=== PATIENT | female | born 1995 | race Caucasian/White ===

== ENCOUNTER 2022-12-21 17:37 | Emergency (ER) | payer SELFPAY ==
--- NOTE | 2022-12-21 18:58 | RAD REPORT ---
EXAM DESCRIPTION: RAD - Hand Right 3 View - 12/21/2022 6:19 pm CLINICAL HISTORY: Right hand pain status post injury FINDINGS: Oblique lucency only seen on one view within the proximal aspect of the fifth metacarpal. It is uncertain whether this represents a nondisplaced fracture or normal variant and should be corre lated clinically No dislocation
--- NOTE | 2022-12-21 19:40 | EDPHYS ---
Physician Documentation [facility] Name: Kathy Sandhu Age: 27 yrs Sex: Female : 1995 Arrival Date: 12/21/2022 Time: 17:37 Bed 12 Private MD: ED Physician Lonnie Boyd HPI: 12/21 19:36 This 27 yrs old Female presents to ER via Ambulatory with complaints of Arm Pain - kb right. 19:36 The patient or guardian reports injury, pain, tenderness. The complaints affect the kb dorsum of right hand. Context: The problem was sustained at home, resulted from using own fist to strike, a wall. Onset: The symptoms/episode began/occurred 1 week(s) ago. Modifying factors: The symptoms are alleviated by nothing, the symptoms are aggravated by nothing. Associated signs and symptoms: The patient has no apparent associated signs or symptoms. Severity of symptoms: At their worst the symptoms were mild, in the emergency department the symptoms are unchanged. The patient has not experienced similar symptoms in the past. The patient has not recently seen a physician. Patient reports she punched a wall 1 week ago. Still complaining of pain to fifth metacarpal on right hand.. 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 - Social history:: Smoking status: Patient denies any tobacco usage or history of. ROS: 19:34 Constitutional: Negative for fever, chills, and weight loss. kb 19:34 MS/extremity: Positive for pain, tenderness, of the dorsum of right hand. 19:34 All other systems are negative. Exam: 19:34 Constitutional: This is a well developed, well nourished patient who is awake, alert, kb and in no acute distress. Head/Face: Normocephalic, atraumatic. ENT: Moist Mucous membranes Cardiovascular: Regular rate and rhythm with a normal S1 and S2. No gallops, murmurs, or rubs. No pulse deficits. Respiratory: Respirations even and unlabored. No increased work of breathing. Talking in full sentences Abdomen/GI: Soft, non-tender. No distention Skin: Warm, dry with normal turgor. Normal color. Neuro: Awake and alert, GCS 15, oriented to person, place, time, and situation. Moves all extremities. Normal gait. Psych: Awake, alert, with orientation to person, place and time. Behavior, mood, and affect are within normal limits. 19:34 Musculoskeletal/extremity: Extremities: grossly normal except: noted in the dorsum of right hand: pain, tenderness, ROM: intact in all extremities, Circulation is intact in all extremities. Sensation intact. Vital Signs: 18:02 BP 129 / 97; Pulse 65; Resp 18; Temp 97; Pulse Ox 99% ; Weight 48.99 kg; Height 5 ft. 2 ko1 in. (157.48 cm); 20:00 BP 118 / 89; Pulse 79; Resp 18; Temp 98.1; Pulse Ox 97% on R/A; Pain 4/10; pf1 18:02 Body Mass Index 19.75 (48.99 kg, 157.48 cm) ko1 MDM: 18:03 Patient medically screened. kb 19:34 Differential diagnosis: dislocation, closed fracture, contusion. Data reviewed: vital kb signs, nurses notes. Counseling: I had a detailed discussion with the patient and/or guardian regarding: the historical points, exam findings, and any diagnostic results supporting the discharge/admit diagnosis, radiology results, the need for outpatient follow up, a orthopedic surgeon, to return to the emergency department if symptoms worsen or persist or if there are any questions or concerns that arise at home. 12/21 18:04 Order name: Hand Right 3 View XRAY; Complete Time: 19:02 kb 12/21 19:34 Order name: Ulnar Gutter splint; Complete Time: 20:10 kb Administered Medications: No medications were administered Disposition: 12/22 07:17 Co-signature as Attending Physician, Lonnie Boyd MD. rn Disposition Summary: 12/21/22 19:39 Discharge Ordered Location: Home kb Condition: Stable kb Diagnosis - Nondisplaced fracture of base of fifth metacarpal bone, right hand kb Followup: kb - With: Emergency Department - When: As needed - Reason: Worsening of condition Followup: kb - With: Private Physician - When: 2 - 3 days - Reason: Recheck today's complaints, Continuance of care, Re-evaluation by your physician Discharge Instructions: - Discharge Summary Sheet kb - Metacarpal Fracture, [id number] kb Forms: - Medication Reconciliation Form kb - Thank You Letter kb - Antibiotic Education kb - Prescription Opioid Use kb Signatures: Dispatcher [employer] Malaika Carranza, HARD CANDY SPINNER-C PIA-Lonnie Kohler MD MD rn Estela Manrique RN RN ko1
--- NOTE | 2022-12-21 19:40 | ER ---
Nurse's Notes [facility] Name: Kathy Sandhu Age: 27 yrs Sex: Female : 1995 Arrival Date: 12/21/2022 Time: 17:37 Bed 12 Private MD: Diagnosis: Nondisplaced fracture of base of fifth metacarpal bone, right hand Presentation: 12/21 18:02 Chief complaint: Patient states: I punched a wall last week and my right hand and pinky ko1 finger hurts with any movement. Coronavirus screen: At this time, the client does not indicate any symptoms associated with coronavirus-19. Coronavirus screen: Vaccine status: Patient reports being unvaccinated. Ebola Screen: No symptoms or risks identified at this time. Initial Sepsis Screen: Does the patient meet any 2 criteria? No. Patient's initial sepsis screen is negative. Does the patient have a suspected source of infection? No. Patient's initial sepsis screen is negative. Risk Assessment: Do you want to hurt yourself or someone else? Patient reports no desire to harm self or others. Onset of symptoms was December 21, 2022 at 18:05. 18:02 Method Of Arrival: Ambulatory ko1 18:02 Acuity: DAWN 4 ko1 Triage Assessment: 18:05 General: Appears in no apparent distress. comfortable, Behavior is calm, cooperative, ko1 appropriate for age. Pain: Complains of pain in medial aspect of right hand and dorsal aspect of proximal phalanx of right little finger. 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 - Social history:: Smoking status: Patient denies any tobacco usage or history of. Screenin:00 Abuse screen: Denies threats or abuse. pf1 19:00 [facility] ED Fall Risk Assessment (Adult) History of falling in the last 3 months, pf1 including since admission No falls in past 3 months (0 pts) Confusion or Disorientation No (0 pts) Intoxicated or Sedated No (0 pts) Impaired Gait No (0 pts) Mobility Assist Device Used No (0 pt) Altered Elimination No (0 pt) Score/Fall Risk Level 0 - 2 = Low Risk Oriented to surroundings, Maintained a safe environment, Educated pt \T\ family on fall prevention, incl call for assistance when getting out of bed, Assessed \T\ reinforced patient's understanding of fall precautions, Provided non-skid footwear, Hourly rounding (assess needs \T\ fall precautionary measures) done, Used ambulatory aids as needed (educated on \T\ assisted with), Used gait belt as appropriate. Nutritional screening: No deficits noted. Tuberculosis screening: No symptoms or risk factors identified. Assessment: 19:00 General: Appears in no apparent distress. comfortable, well groomed, well developed, pf1 Behavior is calm, cooperative, appropriate for age, quiet. 19:00 Pain: Complains of pain in dorsum of right hand and right hand and dorsal aspect of pf1 proximal phalanx of right little finger Pain currently is 4 out of 10 on a pain scale. Neuro: No deficits noted. Level of Consciousness is awake, alert, obeys commands, Oriented to person, place, time, situation. Cardiovascular: No deficits noted. Capillary refill < 3 seconds Patient's skin is warm and dry. Respiratory: No deficits noted. Airway is patent Trachea midline Respiratory effort is even, unlabored, Respiratory pattern is regular, symmetrical. GI: No deficits noted. No signs and/or symptoms were reported involving the gastrointestinal system. : No deficits noted. No signs and/or symptoms were reported regarding the genitourinary system. EENT: No deficits noted. No signs and/or symptoms were reported regarding the EENT system. Derm: No deficits noted. No signs and/or symptoms reported regarding the dermatologic system. Musculoskeletal: Circulation, motion, and sensation intact. Swelling present in right hand Reports pain in dorsum of right hand and right hand. Vital Signs: 18:02 BP 129 / 97; Pulse 65; Resp 18; Temp 97; Pulse Ox 99% ; Weight 48.99 kg; Height 5 ft. 2 ko1 in. (157.48 cm); 20:00 BP 118 / 89; Pulse 79; Resp 18; Temp 98.1; Pulse Ox 97% on R/A; Pain 4/10; pf1 18:02 Body Mass Index 19.75 (48.99 kg, 157.48 cm) ko1 ED Course: 17:37 Patient arrived in ED. am2 17:43 Malaika Simmons FNP-C is PHCP. kb 17:43 Lonnie Boyd MD is Attending Physician. kb 18:05 Triage completed. ko1 18:05 Arm band placed on left wrist. ko1 18:21 Hand Right 3 View XRAY In Process Unspecified. EDMS 19:00 No provider procedures requiring assistance completed. pf1 19:00 Patient did not have IV access during this emergency room visit. pf1 20:00 Patient has correct armband on for positive identification. pf1 20:00 Orthoglass splint: Ulnar gutter/Boxer splint applied on right forearm. to right hand. pf1 Administered Medications: No medications were administered Medication: 19:00 VIS not applicable for this client. pf1 Outcome: 19:39 Discharge ordered by . kb 20:10 Discharged to home ambulatory. pf1 20:10 Condition: stable 20:10 Discharge instructions given to patient, Instructed on discharge instructions, follow up and referral plans. Demonstrated understanding of instructions, follow-up care. 20:10 Patient left the ED. pf1 Signatures: Dispatcher [employer] EDMS Malaika Simmons, MEDICINE TEACHER-C MEDICINE TEACHER-CkDebbie Nam am2 Estela Manrique, RN RN ko1 Karen bruno, LILA RN pf1
[2022-12-21 20:34] VITALS: BP 129/97; TEMP 97; O2SAT 99
== END 2022-12-21 20:10 | disposition home or self-care (01) ==
LOC: ER 17:37
PROC: 2W3EX1Z Immobilization of Right Hand using Splint (ICD-10-PCS; principal; 2022-12-21)
DX: S62.346A Nondisplaced fracture of base of fifth metacarpal bone, right hand, initial encounter for closed fracture (principal)
CPT/HCPCS: 99283